=== PATIENT | male | born 1940 | race African-American/Black ===

== ENCOUNTER 2018-09-01 22:07 | Inpatient (IN) | payer OTHER ==
[~2018-09-01 22:07] MED LIST: ISOVUE-370 76%-LOCM 1 ML ONE
[2018-09-01] MEDS ORDERED: Acetaminophen 500 MG TAB ONE (23:43)
[2018-09-02] MEDS ORDERED: Ondansetron PF 4 MG/2 ML Vial IVP PRN ×2 (00:39→07:40)
[2018-09-02] MEDS ORDERED: Ondansetron ODT 4 MG TAB SL PRN (00:39)
[2018-09-02 00:51] VITALS: BMI 38.7
[2018-09-02] MEDS ORDERED: hydrALAZINE 20 MG/ML VIAL SLOW IVP PRN ×3 (01:06→07:48)
[2018-09-02] MEDS ORDERED: Labetalol HCl 100 MG/20 ML VIAL SLOW IVP PRN ×2 (01:06→07:40)
[2018-09-02] MEDS ORDERED: Bisacodyl 10 MG SUPP PR PRN (01:12)
[2018-09-02] MEDS ORDERED: Ketorolac Tromethamine 30 MG/ML VIAL IVP PRN (03:53)
[2018-09-02] MEDS: Acetaminophen 325 MG TAB PO PRN (05:52)
--- NOTE | 2018-09-02 07:26 | CT ---
CT ARTERIOGRAM NECK WITH IV CONTRAST AND 3D MIP IMAGING CT ARTERIOGRAM HEAD WITH IV CONTRAST AND 3D MIP IMAGING CT PERFUSION BRAIN CT BRAIN WITH AND WITHOUT IV CONTRAST: Date: 09/01/18 HISTORY: CVA. Vascular disease. FINDINGS: There is no evidence of acute intracranial hemorrhage or infarct. Mild chronic ischemic small vessel disease. The sella is expanded by a lobular low density lesion without significant enhancement. It me asures up to 1.5 cm and displaces the adjacent vessels. Normal branching of the great vessels at the aortic arch with very tortuous great vessels. Good flow into each internal carotid and vertebral system. On the right, there is a large amount of calcification and plaque in the proximal internal carotid ar teries resulting in a string of contrast along the length of the proximal to mid ICA. Stenosis is gre ater than 90%. The left internal carotid artery is patent with a small amount of plaque. Intracranial ly, the andreafski of [place] is intact. Good flow into each cerebral arterial system. The right suprasell ar internal carotid artery is slightly effaced by the sellar mass. Perfusion images show no focal perfusion defect. The mean transit images show slight delay in uptake in the distribution of the right middle cerebral artery. IMPRESSION: 1. Severe stenosis of the right internal carotid artery within the neck. This likely accounts for th e delay in blood flow to the right middle cerebral artery distribution. No evidence of infarct. 2. Sellar and suprasellar mass, at least 1.5 cm greatest diameter. Please consider dedicated MRI of pituitary gland for better evaluation. All findings discussed with Dr. Rao at 2356 hours. CODE CR. POS: [facility]
[2018-09-02] MEDS ORDERED: Sodium Chloride 0.65% Nasal 44 ML BOT EA NARE PRN (07:40)
[2018-09-02] MEDS ORDERED: Loperamide HCl 2 MG CAP PO PRN (07:40)
[2018-09-02] MEDS ORDERED: Diabetic Tussin 200 MG/10 ML UDCUP PO PRN (07:40)
[2018-09-02] MEDS ORDERED: Cepastat Lozenges 1 LOZ PO PRN (07:40)
[2018-09-02] MEDS ORDERED: Eucerin (Mineral Oil/Petrolatum,White) 30 gm Jar TOP PRN (07:40)
[2018-09-02] MEDS ORDERED: Senokot S 8.6-50 MG TAB PO PRN (07:40)
[2018-09-02] MEDS ORDERED: Artificial Tears 18 DROP/0.9 ML EA EYE PRN (07:40)
[2018-09-02] MEDS ORDERED: Ondansetron ODT 4 MG TAB PO PRN (07:40)
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
[2018-09-02] MEDS: Clopidogrel Bisulfate 75 MG TAB PO SCH (08:24)
[2018-09-02] MEDS: Enoxaparin Sodium 40 MG/0.4 ML SYRINGE SC SCH (08:25)
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
[2018-09-02 10:36] LABS: Free T4 (Free Thyroxine) 0.87 ng/dL (0.70-1.48); Thyroid Stimulating Hormone 0.911 uIU/mL (0.35-4.94)
[2018-09-02 10:37] LABS: Follicle Stimulating Hormone 6.45 mIU/mL (See Ranges); Luteinizing Hormone 8.97 mIU/mL (See Ranges)
--- NOTE | 2018-09-02 10:37 | PDOC.PN ---
- Subjective Encounter Start Date: 09/02/18 Encounter Start Time: 07:15 -: old records requested/rev pt has left side weakness, speech is OK, has headache, denies diplopia Patient seen and examined. No overnight events - Objective Resuscitation Status: Resuscitation Status FULL:Full Resuscitation MAR Reviewed: Yes Vital Signs & Weight: Vital Signs (12 hours) Temp Pulse Resp BP Pulse Ox 09/02/18 08:10 98 09/02/18 08:06 99 F 78 16 161/78 H 96 09/02/18 08:00 99.0 F 68 16 121/56 L 98 09/02/18 04:00 98.3 F 09/02/18 01:00 98.1 F 09/02/18 00:30 95 Weight Weight 255 lb 1.197 oz Most Recent Monitor Data Heart Rate from ECG 93 NIBP 163/133 NIBP BP-Mean 143 Respiration from ECG 25 SpO2 93 I&O: 09/01/18 09/02/18 09/03/18 06:59 06:59 06:59 Output Total 375 Balance -375 Additional Labs: Accuchecks 09/02/18 06:05 POC Glucose 114 H Radiology Reviewed by me: Yes (CT angio reviewed) EKG Reviewed by me: Yes (nsr) Phys Exam - Physical Examination Constitutional: NAD HEENT: PERRLA, moist MMs, sclera anicteric Neck: no JVD, supple short neck+ Respiratory: no wheezing, no rales, no rhonchi Cardiovascular: RRR, no significant murmur, no rub Gastrointestinal: soft, non-tender, no distention, positive bowel sounds obesity+ Musculoskeletal: no edema, pulses present left side weakness Lymphatic: no nodes Psychiatric: normal affect, A&O x 3 Skin: no rash, normal turgor Dx/Plan (1) Acute right MCA stroke Code(s): I63.511 - CEREB INFRC D/T UNSP OCCLS OR STENOS OF RIGHT MID CEREB ART Status: Acute Comment: with left side weakness, continue plavix, lipitor, amlodipine, continue stroke team evaluation (2) Carotid stenosis, right Code(s): I65.21 - OCCLUSION AND STENOSIS OF RIGHT CAROTID ARTERY Status: Acute Comment: severe stenosis, he will need possible intervention if possible after recovery from stroke (3) 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 (4) Obesity (BMI 30-39.9) Code(s): E66.9 - OBESITY, UNSPECIFIED Status: Chronic (5) Osteoarthritis Code(s): M19.90 - UNSPECIFIED OSTEOARTHRITIS, UNSPECIFIED SITE Status: Acute (6) GERD (gastroesophageal reflux disease) Code(s): K21.9 - GASTRO-ESOPHAGEAL REFLUX DISEASE WITHOUT ESOPHAGITIS Status: Chronic (7) Hypertension Code(s): I10 - ESSENTIAL (PRIMARY) HYPERTENSION Status: Chronic (8) Chronic low back pain Code(s): M54.5 - LOW BACK PAIN; G89.29 - OTHER CHRONIC PAIN Status: Chronic - Plan cont current plan of care, PT/OT, clinical social work therapist, speech therapy, DVT proph w/ lovenox * CT surgeon consulted and discussed * Neurosurgeon consulted for pitutary mass, hormonal work up sent * stroke team consulted * start amlodipine 10 mg po daily * medication reviewed as below * symptomatic treatment * will monitor * may need rehab at [facility] on discharge. * MRI brain and echo today Review of Systems - Review of Systems Constitutional: negative: fever, chills, sweats, weakness, malaise, other ENT: negative: Ear Pain, Ear Discharge, Nose Pain, Nose Discharge, Nose Congestion, Mouth Pain, Mouth Swelling, Throat Pain, Throat Swelling, Other Respiratory: negative: Cough, Dry, Shortness of Breath, Hemoptysis, SOB with Excertion, Pleuritic Pain, Sputum, Wheezing Cardiovascular: negative: chest pain, palpitations, orthopnea, paroxysmal nocturnal dyspnea, edema, light headedness, other Gastrointestinal: negative: Nausea, Vomiting, Abdominal Pain, Diarrhea, Constipation, Melena, Hematochezia, Other Genitourinary: negative: Dysuria, Frequency, Incontinence, Hematuria, Retention , Other Musculoskeletal: Back Pain. negative: Neck Pain, Shoulder Pain, Arm Pain, Hand Pain, Leg Pain, Foot Pain, Other Skin: negative: Rash, Lesions, Jeffy, Bruising, Other Neurological: Weakness, Other (headache). negative: Numbness, Incoordination, Change in Speech, Confusion, Seizures - Medications/Allergies Allergies/Adverse Reactions: Allergies Allergy/AdvReac Type Severity Reaction Status Date / Time aspirin Allergy Verified 09/02/18 00:38 Medications: Current Medications Acetaminophen (Tylenol) 650 mg PO Q6H PRN PRN Reason: Headache/MILD PAIN 1-3 Last Admin: 10/18/18 05:52 Dose: 650 mg Hydrocodone Bitart/Acetaminophen ([place] 5/325) 1 tab PO Q4H PRN PRN Reason: Moderate Pain (4-6) Artificial Tears (Tears Naturale) 2 drop EA EYE PRN PRN PRN Reason: Dry Eyes Atorvastatin Calcium (Lipitor) 80 mg PO HS [facility] Bisacodyl (Dulcolax) [address] DAILYPRN PRN PRN Reason: Constipation Clopidogrel Bisulfate (Plavix) 75 mg PO DAILY [facility] Last Admin: 09/02/18 08:24 Dose: 75 mg Enoxaparin Sodium (Lovenox) 40 mg SC 0900 [facility] Last Admin: 09/02/18 08:25 Dose: 40 mg Guaifenesin (Robitussin Sf) 200 mg PO Q4H PRN PRN Reason: Cough Hydralazine HCl (Apresoline) 10 mg SLOW IVP Q4H PRN PRN Reason: SBP Greater Than 180 Labetalol HCl (Normodyne) 20 mg SLOW IVP Q1H PRN PRN Reason: BP > 220/110 Labetalol HCl (Normodyne) 20 mg SLOW IVP Q4H PRN PRN Reason: SBP Greater Than 180 Loperamide HCl (Imodium) 2 mg PO PRN PRN PRN Reason: Diarrhea/Loose Stools Mineral Oil/White Petrolatum (Eucerin Cream) 0 gm TOP BIDPRN PRN PRN Reason: Dry Skin Ondansetron HCl (Zofran Odt) 4 mg PO Q6H PRN PRN Reason: Nausea/Vomiting Ondansetron HCl (Zofran) 4 mg IVP Q6H PRN PRN Reason: Nausea/Vomiting Senna/Docusate Sodium (Senokot S) 2 tab PO BID PRN PRN Reason: Constipation Sodium Chloride (Flush - Normal Saline) 10 ml IVF Q12HR [facility] Last Admin: 09/02/18 08:25 Dose: 10 ml Sodium Chloride (Flush - Normal Saline) 10 ml IVF PRN PRN PRN Reason: Saline Flush Sodium Chloride (Davis Nasal [place] 0.65%) 0 ml EA NARE QIDPRN PRN PRN Reason: Nasal Congestion Throat Lozenges (Cepastat Lozenges) 1 keon PO Q2H PRN PRN Reason: Sore Throat Zolpidem Tartrate (Ambien) 5 mg PO HSPRN PRN PRN Reason: Insomnia
[2018-09-02 13:54] LABS: ALT (SGPT) 14 U/L (8-55); AST (SGOT) 29 U/L (5-34); Albumin 4.3 g/dL (3.4-4.8); Alkaline Phosphatase 108 U/L (40-150); Anion Gap 15 mmol/L (10-20); BUN (Urea Nitrogen) 16 mg/dL (8.4-25.7); Calc. Creatinine Clearance 88 mL/min (70-130); Calcium 9.7 mg/dL (7.8-10.44); Carbon Dioxide 20 mmol/L (23-31); Chloride 101 mmol/L (98-107); Estimated GFR-MDRD 73; Globulin 3.6 g/dL (2.4-3.5); Glucose 114 mg/dL (83-110); Potassium 3.8 mmol/L (3.5-5.1); Protein, Total 7.9 g/dL (5.8-8.1); Sodium 132 mmol/L (136-145)
[2018-09-02] MEDS: HYDROcodone/Acetaminophen 5/325 mg Tablet PO PRN ×2 (17:15→22:53)
[2018-09-02] MEDS: Atorvastatin Calcium 40 MG TAB PO SCH (22:29)
--- NOTE | 2018-09-02 22:34 | CON ---
DATE OF CONSULTATION: 09/02/2018 NEUROLOGY CONSULTATION CONSULTING PHYSICIAN: Hospitalist service. IMPRESSION: Minor stroke with high grade right internal carotid stenosis. Vascular surgery does not feel it is amenable to surgical intervention. PLAN: 1. I would check with Dr. Cano to see if he could potentially stent the area. Otherwise, he had to be referred out to a different facility for treatment. 2. Continue aspirin and Plavix. Mr. Brito is a 78-year-old inmate, came in with acute left-sided weakness. His workup has include d a CTA, which showed high grade stenosis in the right internal carotid artery below the skull base. His lipid panel showed a ratio of 4.0. CT did not reveal any evidence of ischemia. His left-sided weakness has improved since admission. He has not noted any difficulty with speech or swallowing. H e does not report any weakness in the leg. He has not had any symptoms like this in the past. PAST MEDICAL HISTORY: As per chart. SOCIAL HISTORY: He is an inmate. ALLERGIES: ASPIRINS. FAMILY HISTORY: Noncontributory. REVIEW OF SYSTEMS: Positive for right-sided headache. No chest pain or shortness of breath. PHYSICAL EXAMINATION: GENERAL: Somewhat overweight elderly man, in no acute distress. HEENT: Pupils equal and reactive. Conjunctivae clear. Oropharynx clear. NECK: Supple. EXTREMITIES: No cyanosis. NEUROLOGIC: He is alert and cooperative. His speech is fluent and clear. Cranial nerve exam showed some questionable left facial flattening, but it was quite subtle. Motor exam showed only partial a ntigravity strength in the left arm with a mildly diminished hand neckties painter. Sensation was subjectively e qual. His leg strength seemed to be fairly symmetric. Plantar response was downgoing on the right a nd upgoing on the left. Imaging was reviewed. SUMMARY: This is a 78-year-old gentleman who presents with left-sided weakness and high grade stenos is on the right. Dr. Cano suggests medical therapy before considering stenting. If he is truly all ergic to aspirin, I would discharge him on Plavix and a statin. He can have some outpatient rehabili tation.
[2018-09-03] MEDS: HYDROcodone/Acetaminophen 5/325 mg Tablet PO PRN ×5 (02:40→23:53)
[2018-09-03 07:23] LABS: #Basophils 0.1 thou/uL (0.0-0.2); #Eosinphils 0.1 thou/uL (0.0-0.7); #Lymphocytes 1.4 thou/uL (1.20-3.40); #Monocytes 1.6 thou/uL (0.11-0.59); #Neutrophils 9.3 thou/uL (1.40-6.50); %Basophils 0.4 % (0.0-1.0); %Eosinophils 0.5 % (0.0-10.0); %Lymphocytes 10.9 % (21.0-51.0); %Monocytes 12.9 % (0.0-10.0); %Neutrophils 75.2 % (42.0-75.0); Hemoglobin 15.5 g/dL (14.0-18.0); Mean Corpuscular HGB CONC 32.1 g/dL (32.0-36.0); Mean Corpuscular Hemoglobin 28.7 pg (27.0-31.0); Mean Corpuscular Volume 89.6 fL (78.0-98.0); Mean Platelet Volume 10.7 fL (7.4-10.4); Platelet Count 143 thou/uL (130-400); RBC Distribution Width 13.4 % (11.5-14.5); Red Blood Cell (RBC) Count 5.39 mill/uL (4.70-6.10); White Blood Cell (WBC) Count 12.3 thou/uL (4.8-10.8)
[2018-09-03 07:25] LABS: Anion Gap 11 mmol/L (10-20); BUN (Urea Nitrogen) 19 mg/dL (8.4-25.7); Calc. Creatinine Clearance 98 mL/min (70-130); Calcium 9.6 mg/dL (7.8-10.44); Carbon Dioxide 24 mmol/L (23-31); Chloride 101 mmol/L (98-107); Estimated GFR-MDRD 83; Glucose 101 mg/dL (83-110); Potassium 3.7 mmol/L (3.5-5.1); Sodium 132 mmol/L (136-145)
[2018-09-03 07:46] LABS: RBC Morphology Normal
--- NOTE | 2018-09-03 08:29 | PRG ---
DATE OF SERVICE: 09/03/2018 I personally interviewed and examined the patient and agree with documentation of Keya Sanchez PA-C dated 09/02/2018. Briefly, Giovanny Brito is a 78-year-old [facility]al of the [facility] who [facility] with new-onset left-sided weakness from stroke. A h igh grade right carotid stenosis was diagnosed with stenosis reached too high in the cervical carotid to be surgically accessible. We recommended that he be treated with antiplatelet agents. During hi s evaluation for stroke imaging revealed increase in size of the pituitary gland measuring about 1.5 cm and Neurosurgery was consulted. Mr. Brito has not had hot and cold intolerance, he has no subjective change in his vision. He has not had any change in his hand or foot size. He has no new onset diabetes or hypertension that is u nexplained, does not have wound healing issues that he knows of. I saw Mr. Brito in his hospital room this morning. On neurological examination, he may have a left upper quadrantanopsia. Otherwise, his visual mederos are full to bedside confrontational examination. His extraocular muscles are moving his eyes in all directions of primary gaze without nystagmus. His face is sensate and symmetric. There is some mild lower face weakness on the left. His hearing is normal for age. His lower cranial nerves are intac t. The tongue protrudes in the midline. Shoulder shrug is strong. There is mild upper motor neuron weakness in the left arm greater than right. There is relatively good preservation of sensation. Imaging findings suggest increase in size of the sella contents. 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 Serological examinations have been done. Prolactin is normal, FSH and LH are normal. The free T4 an d TSH are normal, IgF 1 is pending. MR imaging of the pituitary is pending. Ms. 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 This could be affecting his vision. A formal ophthalmological examination is recommended as well as an MRI scan u [facility] pituitary protocol. Mr. Brito is anxious about getting into the MR scanner. Sedation or ane sthesia could be arranged for the MRI scan. The pituitary adenomas incidental to the stroke and I think it is unrelated. It be worked up as an o utpatient or while he is here. Mr. Brito was ambivalent about getting treatment for this until it mention that it could affect his vision and he could have a slow and progressive blindness as a resu lt. He seemed more interested in workup because of that. I will be happy to see him in the office t o follow up on his imaging studies or, if they are done while in the hospital we can make arrangement s for tumor treatment before discharge. I will look for the MRI scan results over the weekend, as I am tree surgeon helper.
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
[2018-09-03] MEDS: Clopidogrel Bisulfate 75 MG TAB PO SCH (08:58)
[2018-09-03] MEDS: Enoxaparin Sodium 40 MG/0.4 ML SYRINGE SC SCH (08:59)
--- NOTE | 2018-09-03 09:49 | PDOC.PN ---
- Subjective Encounter Start Date: 09/03/18 Encounter Start Time: 07:10 yesterday mri was not possible, today he has no new problems - Objective Resuscitation Status: Resuscitation Status FULL:Full Resuscitation MAR Reviewed: Yes Vital Signs & Weight: Vital Signs (12 hours) Temp Pulse Resp BP Pulse Ox 09/03/18 07:51 99.2 F 70 16 157/58 H 97 09/03/18 04:00 98.6 F 75 28 H 137/74 97 09/03/18 00:00 98.4 F 70 20 153/79 H 96 Weight Weight 255 lb 1.197 oz Most Recent Monitor Data Heart Rate from ECG 93 NIBP 163/133 NIBP BP-Mean 143 Respiration from ECG 25 SpO2 93 I&O: 09/02/18 09/03/18 09/04/18 06:59 06:59 06:59 Intake Total 350 Output Total 375 475 Balance -375 -125 Result Diagrams: 09/03/18 05:08 09/03/18 05:08 Additional Labs: Accuchecks 09/03/18 09/02/18 09/02/18 06:37 20:53 16:42 POC Glucose 98 89 95 09/02/18 10:50 POC Glucose 108 Radiology Reviewed by me: Yes (echo reviewed) EKG Reviewed by me: Yes (nsr) Phys Exam - Physical Examination Constitutional: NAD HEENT: PERRLA, moist MMs, sclera anicteric Neck: no JVD, supple Respiratory: no wheezing, no rales, no rhonchi Cardiovascular: RRR, no significant murmur, no rub Gastrointestinal: soft, non-tender, no distention, positive bowel sounds Musculoskeletal: no edema, pulses present left side weakness noted Psychiatric: normal affect, A&O x 3 Skin: no rash, normal turgor Dx/Plan (1) Acute right MCA stroke Code(s): I63.511 - CEREB INFRC D/T UNSP OCCLS OR STENOS OF RIGHT MID CEREB ART Status: Acute Comment: with left side weakness, continue plavix, lipitor, amlodipine, continue stroke team evaluation (2) Carotid stenosis, right Code(s): I65.21 - OCCLUSION AND STENOSIS OF RIGHT CAROTID ARTERY Status: Acute Comment: severe stenosis, he will need possible intervention if possible after recovery from stroke (3) 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 (4) Obesity (BMI 30-39.9) Code(s): E66.9 - OBESITY, UNSPECIFIED Status: Chronic (5) Osteoarthritis Code(s): M19.90 - UNSPECIFIED OSTEOARTHRITIS, UNSPECIFIED SITE Status: Acute (6) GERD (gastroesophageal reflux disease) Code(s): K21.9 - GASTRO-ESOPHAGEAL REFLUX DISEASE WITHOUT ESOPHAGITIS Status: Chronic (7) Hypertension Code(s): I10 - ESSENTIAL (PRIMARY) HYPERTENSION Status: Chronic (8) Chronic low back pain Code(s): M54.5 - LOW BACK PAIN; G89.29 - OTHER CHRONIC PAIN Status: Chronic - Plan cont current plan of care, PT/OT, dialysis social worker * continue stroke team evaluation * he needs to be treated with medicine * no intervention possible at this time as per CT surgeon and neurosurgery * medication reviewed as below * symptomatic treatment * he will need infirmary on discharge. Review of Systems - Review of Systems Eyes: negative: Pain, Vision Change, Conjunctivae Inflammation, Eyelid Inflammation, Redness, Other ENT: negative: Ear Pain, Ear Discharge, Nose Pain, Nose Discharge, Nose Congestion, Mouth Pain, Mouth Swelling, Throat Pain, Throat Swelling, Other Respiratory: negative: Cough, Dry, Shortness of Breath, Hemoptysis, SOB with Excertion, Pleuritic Pain, Sputum, Wheezing Cardiovascular: negative: chest pain, palpitations, orthopnea, paroxysmal nocturnal dyspnea, edema, light headedness, other Gastrointestinal: negative: Nausea, Vomiting, Abdominal Pain, Diarrhea, Constipation, Melena, Hematochezia, Other Genitourinary: negative: Dysuria, Frequency, Incontinence, Hematuria, Retention , Other Musculoskeletal: negative: Neck Pain, Shoulder Pain, Arm Pain, Back Pain, Hand Pain, Leg Pain, Foot Pain, Other Skin: negative: Rash, Lesions, Jeffy, Bruising, Other Neurological: Weakness. negative: Numbness, Incoordination, Change in Speech, Confusion, Seizures, Other - Medications/Allergies Allergies/Adverse Reactions: Allergies Allergy/AdvReac Type Severity Reaction Status Date / Time aspirin Allergy Verified 09/02/18 00:38 Medications: Current Medications Acetaminophen (Tylenol) 650 mg PO Q6H PRN PRN Reason: Headache/MILD PAIN 1-3 Last Admin: 09/02/18 05:52 Dose: 650 mg Hydrocodone Bitart/Acetaminophen ([place] 5/325) 1 tab PO Q4H PRN PRN Reason: Moderate Pain (4-6) Last Admin: 09/03/18 08:58 Dose: 1 tab Artificial Tears (Tears Naturale) 2 drop EA EYE PRN PRN PRN Reason: Dry Eyes Atorvastatin Calcium (Lipitor) 80 mg PO HS COUNTS [facility]CLUDE 234 BEDS AT THE [facility] Last Admin: 09/02/18 22:29 Dose: 80 mg Bisacodyl (Dulcolax) 10 mg [place] DAILYPRN PRN PRN Reason: Constipation Clopidogrel Bisulfate (Plavix) 75 mg PO DAILY COUNTS INCLUDE 234 BEDS AT THE [facility] Last Admin: 09/03/18 08:58 Dose: 75 mg Enoxaparin Sodium (Lovenox) 40 mg SC 0900 COUNTS INCLUDE 234 BEDS AT THE [facility] Last Admin: 09/03/18 08:59 Dose: 40 mg Guaifenesin (Robitussin Sf) 200 mg PO Q4H PRN PRN Reason: Cough Hydralazine HCl (Apresoline) 10 mg SLOW IVP Q4H PRN PRN Reason: SBP Greater Than 180 Labetalol HCl (Normodyne) 20 mg SLOW IVP Q1H PRN PRN Reason: BP > 220/110 Labetalol HCl (Normodyne) 20 mg SLOW IVP Q4H PRN PRN Reason: SBP Greater Than 180 Loperamide HCl (Imodium) 2 mg PO PRN PRN PRN Reason: Diarrhea/Loose Stools Mineral Oil/White Petrolatum (Eucerin Cream) 0 gm TOP BIDPRN PRN PRN Reason: Dry Skin Ondansetron HCl (Zofran Odt) 4 mg PO Q6H PRN PRN Reason: Nausea/Vomiting Ondansetron HCl (Zofran) 4 mg IVP Q6H PRN PRN Reason: Nausea/Vomiting Senna/Docusate Sodium (Senokot S) 2 tab PO BID PRN PRN Reason: Constipation Sodium Chloride (Flush - Normal Saline) 10 ml IVF Q12HR COUNTS INCLUDE 234 BEDS AT THE [facility] Last Admin: 09/03/18 08:59 Dose: 10 ml Sodium Chloride (Flush - Normal Saline) 10 ml IVF PRN PRN PRN Reason: Saline Flush Sodium Chloride ([place] Nasal [place] 0.65%) 0 ml EA NARE QIDPRN PRN PRN Reason: Nasal Congestion Throat Lozenges (Cepastat Lozenges) 1 keon PO Q2H PRN PRN Reason: Sore Throat Zolpidem Tartrate (Ambien) 5 mg PO HSPRN PRN PRN Reason: Insomnia
[2018-09-03] MEDS: Famotidine 20 MG TAB PO SCH (19:56)
[2018-09-03] MEDS: Atorvastatin Calcium 40 MG TAB PO SCH (19:56)
[2018-09-04] MEDS: HYDROcodone/Acetaminophen 5/325 mg Tablet PO PRN ×4 (04:17→21:06)
--- NOTE | 2018-09-04 07:51 | PRG ---
DATE OF SERVICE: 09/04/2018 Reviewed results from yesterday on Giovanny Brito. I do not see a new MRI scan. I am happy to see him here in the hospital or in clinic once a pituitary protocol MRI scan can be obtained. He is kosta g to need anesthesia assistance to tolerate being in the MR scanner. We will follow up when that is done.
[2018-09-04] MEDS: Enoxaparin Sodium 40 MG/0.4 ML SYRINGE SC SCH (08:32)
[2018-09-04 08:34] LABS: #Lymphocytes 1.5 thou/uL (1.20-3.40); #Monocytes 1.9 thou/uL (0.11-0.59); #Neutrophils 12.2 thou/uL (1.40-6.50); %Basophils 0.3 % (0.0-1.0); %Eosinophils 0.3 % (0.0-10.0); %Lymphocytes 9.5 % (21.0-51.0); Hemoglobin 15.1 g/dL (14.0-18.0); Mean Corpuscular HGB CONC 31.6 g/dL (32.0-36.0); Mean Corpuscular Volume 88.7 fL (78.0-98.0); Mean Platelet Volume 10.8 fL (7.4-10.4); Platelet Count 141 thou/uL (130-400); Red Blood Cell (RBC) Count 5.39 mill/uL (4.70-6.10); White Blood Cell (WBC) Count 15.6 thou/uL (4.8-10.8)
[2018-09-04] MEDS: Famotidine 20 MG TAB PO SCH ×2 (08:34→21:06)
[2018-09-04] MEDS: Clopidogrel Bisulfate 75 MG TAB PO SCH (08:34)
[2018-09-04 09:00] LABS: Calcium 9.4 mg/dL (7.8-10.44); Chloride 98 mmol/L (98-107); Potassium 4.2 mmol/L (3.5-5.1); Sodium 130 mmol/L (136-145)
[2018-09-04 09:01] LABS: Glucose 115 mg/dL (83-110)
[2018-09-04 09:02] LABS: Anion Gap 11 mmol/L (10-20); Carbon Dioxide 25 mmol/L (23-31)
[2018-09-04 09:04] LABS: Calc. Creatinine Clearance 104 mL/min (70-130); Estimated GFR-MDRD 89
[2018-09-04 09:05] LABS: BUN (Urea Nitrogen) 18 mg/dL (8.4-25.7)
--- NOTE | 2018-09-04 09:58 | PDOC.PN ---
- Subjective Encounter Start Date: 09/04/18 Encounter Start Time: 07:10 he has low grade fever, he denies cough, no UTI symptoms, no new problems - Objective Resuscitation Status: Resuscitation Status FULL:Full Resuscitation MAR Reviewed: Yes Vital Signs & Weight: Vital Signs (12 hours) Temp Pulse Resp BP Pulse Ox 09/04/18 08:24 95 09/04/18 03:21 100.1 F H 70 20 169/81 H 96 Weight Weight 255 lb 1.197 oz Most Recent Monitor Data Heart Rate from ECG 93 NIBP 163/133 NIBP BP-Mean 143 Respiration from ECG 25 SpO2 93 I&O: 09/03/18 09/04/18 09/05/18 06:59 06:59 06:59 Intake Total 350 1220 Output Total 475 Balance -125 1220 Result Diagrams: 09/04/18 08:13 09/04/18 08:13 Additional Labs: Accuchecks 09/03/18 09/03/18 09/03/18 21:34 16:50 10:44 POC Glucose 140 H 106 123 H Radiology Reviewed by me: Yes (chest xray reviewed) EKG Reviewed by me: Yes (nsr) Phys Exam - Physical Examination Constitutional: NAD HEENT: PERRLA, moist MMs, sclera anicteric Neck: no JVD, supple Respiratory: no wheezing, no rales, no rhonchi Cardiovascular: RRR, no significant murmur, no rub Gastrointestinal: soft, non-tender, no distention, positive bowel sounds obesity+ Musculoskeletal: no edema, pulses present left side weakness noted Psychiatric: normal affect, A&O x 3 Skin: no rash, normal turgor Dx/Plan (1) Acute right MCA stroke Code(s): I63.511 - CEREB INFRC D/T UNSP OCCLS OR STENOS OF RIGHT MID CEREB ART Status: Acute Comment: with left side weakness, continue plavix, lipitor, amlodipine, continue stroke team evaluation (2) Carotid stenosis, right Code(s): I65.21 - OCCLUSION AND STENOSIS OF RIGHT CAROTID ARTERY Status: Acute Comment: severe stenosis, he will need possible intervention if possible after recovery from stroke (3) 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 (4) Obesity (BMI 30-39.9) Code(s): E66.9 - OBESITY, UNSPECIFIED Status: Chronic (5) Osteoarthritis Code(s): M19.90 - UNSPECIFIED OSTEOARTHRITIS, UNSPECIFIED SITE Status: Acute (6) GERD (gastroesophageal reflux disease) Code(s): K21.9 - GASTRO-ESOPHAGEAL REFLUX DISEASE WITHOUT ESOPHAGITIS Status: Chronic (7) Hypertension Code(s): I10 - ESSENTIAL (PRIMARY) HYPERTENSION Status: Chronic (8) Chronic low back pain Code(s): M54.5 - LOW BACK PAIN; G89.29 - OTHER CHRONIC PAIN Status: Chronic - Plan cont current plan of care, PT/OT * chest xray reviewed for fever * will send UA and urine culture * will monitor for fever today * he needs MRI but because of his size not possible in our hospital, that can be done electively as an outpt and then follow up with neurosurgery * medication reviewed as below * symptomatic treatment * [facility], then he would be ok to dc tomorrow if afebrile. Review of Systems - Review of Systems ENT: negative: Ear Pain, Ear Discharge, Nose Pain, Nose Discharge, Nose Congestion, Mouth Pain, Mouth Swelling, Throat Pain, Throat Swelling, Other Respiratory: negative: Cough, Dry, Shortness of Breath, Hemoptysis, SOB with Excertion, Pleuritic Pain, Sputum, Wheezing Cardiovascular: negative: chest pain, palpitations, orthopnea, paroxysmal nocturnal dyspnea, edema, light headedness, other Gastrointestinal: negative: Nausea, Vomiting, Abdominal Pain, Diarrhea, Constipation, Melena, Hematochezia, Other Genitourinary: negative: Dysuria, Frequency, Incontinence, Hematuria, Retention , Other Musculoskeletal: negative: Neck Pain, Shoulder Pain, Arm Pain, Back Pain, Hand Pain, Leg Pain, Foot Pain, Other Skin: negative: Rash, Lesions, Jeffy, Bruising, Other - Medications/Allergies Allergies/Adverse Reactions: Allergies Allergy/AdvReac Type Severity Reaction Status Date / Time aspirin Allergy Verified 09/02/18 00:38 Medications: Current Medications Acetaminophen (Tylenol) 650 mg PO Q6H PRN PRN Reason: Headache/MILD PAIN 1-3 Last Admin: 09/02/18 05:52 Dose: 650 mg Hydrocodone Bitart/Acetaminophen ([place] 5/325) 1 tab PO Q4H PRN PRN Reason: Moderate Pain (4-6) Last Admin: 09/04/18 08:34 Dose: 1 tab Artificial Tears (Tears Naturale) 2 drop EA EYE PRN PRN PRN Reason: Dry Eyes Atorvastatin Calcium (Lipitor) 80 mg PO HS [facility] Last Admin: 09/03/18 19:56 Dose: 80 mg Bisacodyl (Dulcolax) 10 mg [place] DAILYPRN PRN PRN Reason: Constipation Clopidogrel Bisulfate (Plavix) 75 mg PO DAILY [facility] Last Admin: 09/04/18 08:34 Dose: 75 mg Enoxaparin Sodium (Lovenox) 40 mg SC 0900 [facility] Last Admin: 09/04/18 08:32 Dose: 40 mg Famotidine (Pepcid) 20 mg PO BID [facility] Last Admin: 09/04/18 08:34 Dose: 20 mg Guaifenesin (Robitussin Sf) 200 mg PO Q4H PRN PRN Reason: Cough Hydralazine HCl (Apresoline) 10 mg SLOW IVP Q4H PRN PRN Reason: SBP Greater Than 180 Labetalol HCl (Normodyne) 20 mg SLOW IVP Q4H PRN PRN Reason: SBP Greater Than 180 Loperamide HCl (Imodium) 2 mg PO PRN PRN PRN Reason: Diarrhea/Loose Stools Mineral Oil/White Petrolatum (Eucerin Cream) 0 gm TOP BIDPRN PRN PRN Reason: Dry Skin Ondansetron HCl (Zofran Odt) 4 mg PO Q6H PRN PRN Reason: Nausea/Vomiting Ondansetron HCl (Zofran) 4 mg IVP Q6H PRN PRN Reason: Nausea/Vomiting Senna/Docusate Sodium (Senokot S) 2 tab PO BID PRN PRN Reason: Constipation Sodium Chloride (Flush - Normal Saline) 10 ml IVF Q12HR [facility] Last Admin: 09/04/18 08:35 Dose: 10 ml Sodium Chloride (Flush - Normal Saline) 10 ml IVF PRN PRN PRN Reason: Saline Flush Sodium Chloride ([place] Nasal [place] 0.65%) 0 ml EA NARE QIDPRN PRN PRN Reason: Nasal Congestion Throat Lozenges (Cepastat Lozenges) 1 keon PO Q2H PRN PRN Reason: Sore Throat Zolpidem Tartrate (Ambien) 5 mg PO HSPRN PRN PRN Reason: Insomnia
--- NOTE | 2018-09-04 11:03 | RAD ---
FRONTAL VIEW CHEST: COMPARISON: No prior comparison. INDICATION: Fever, stroke. FINDINGS: Cardiac silhouette is accentuated by portable technique. There is prominence of the central pulmonar y vasculature. No lobar consolidation or significant effusion. No discrete pneumothorax. There are numerous extrinsic artifacts limiting detail. IMPRESSION: 1. No focal consolidation. 2. Mild prominence of pulmonary vasculature which may be related to fluid overload. Correlate clini demetria. POS: ANDRZEJ
[2018-09-04 12:42] LABS: Bilirubin Negative (Negative); Blood, Urine Negative (Negative); Clarity CLEAR (Clear); Glucose, Urine (Dipstick) Negative (Negative); Leukocyte Negative (Negative); Nitrite Negative (Negative); Protein, Urine (Dipstick) Negative (Neg-Trace); Specific Gravity, Urine 1.001 (1.002-1.036); Urobilinogen 0.2 mg/dL (0.2-1.0); pH, Urine 7.5 (5.0-9.0)
[2018-09-04] MEDS: Atorvastatin Calcium 40 MG TAB PO SCH (21:06)
[2018-09-05] MEDS: HYDROcodone/Acetaminophen 5/325 mg Tablet PO PRN ×4 (05:09→21:21)
[2018-09-05 08:06] LABS: #Lymphocytes 1.7 thou/uL (1.20-3.40); #Monocytes 1.8 thou/uL (0.11-0.59); #Neutrophils 9.4 thou/uL (1.40-6.50); %Basophils 0.3 % (0.0-1.0); %Eosinophils 0.2 % (0.0-10.0); %Lymphocytes 12.7 % (21.0-51.0); %Monocytes 14.2 % (0.0-10.0); %Neutrophils 72.6 % (42.0-75.0); Hemoglobin 15.5 g/dL (14.0-18.0); Mean Corpuscular HGB CONC 32.4 g/dL (32.0-36.0); Mean Corpuscular Hemoglobin 28.7 pg (27.0-31.0); Mean Corpuscular Volume 88.8 fL (78.0-98.0); Mean Platelet Volume 10.3 fL (7.4-10.4); Platelet Count 125 thou/uL (130-400); RBC Distribution Width 12.9 % (11.5-14.5); Red Blood Cell (RBC) Count 5.38 mill/uL (4.70-6.10)
[2018-09-05 08:20] LABS: Anion Gap 11 mmol/L (10-20); BUN (Urea Nitrogen) 15 mg/dL (8.4-25.7); Calc. Creatinine Clearance 105 mL/min (70-130); Calcium 9.2 mg/dL (7.8-10.44); Carbon Dioxide 26 mmol/L (23-31); Chloride 98 mmol/L (98-107); Estimated GFR-MDRD 90; Glucose 114 mg/dL (83-110); Potassium 3.6 mmol/L (3.5-5.1); Sodium 131 mmol/L (136-145)
[2018-09-05] MEDS: Clopidogrel Bisulfate 75 MG TAB PO SCH (09:28)
[2018-09-05] MEDS: Famotidine 20 MG TAB PO SCH ×2 (09:30→21:21)
[2018-09-05] MEDS: Enoxaparin Sodium 40 MG/0.4 ML SYRINGE SC SCH (09:30)
--- NOTE | 2018-09-05 10:01 | PDOC.PN ---
- Subjective Encounter Start Date: 09/05/18 Encounter Start Time: 07:10 Patient seen and examined. No new complaints. No overnight events - Objective Resuscitation Status: Resuscitation Status FULL:Full Resuscitation MAR Reviewed: Yes Vital Signs & Weight: Vital Signs (12 hours) Temp Pulse Pulse Resp BP BP Pulse Ox 09/05/18 08:38 84 142/68 H 09/05/18 04:00 99.0 F 62 18 112/69 94 L Weight Weight 255 lb 1.197 oz Most Recent Monitor Data Heart Rate from ECG 93 NIBP 163/133 NIBP BP-Mean 143 Respiration from ECG 25 SpO2 93 I&O: 09/04/18 09/05/18 09/06/18 06:59 06:59 06:59 Intake Total 1220 1290 Balance 1220 1290 Result Diagrams: 09/05/18 07:52 09/05/18 07:52 Additional Labs: Accuchecks 09/05/18 09/04/18 09/04/18 05:34 21:33 17:05 POC Glucose 141 H 125 H 112 H 09/04/18 09/04/18 11:22 05:30 POC Glucose 117 H 112 H EKG Reviewed by me: Yes (nsr) Phys Exam - Physical Examination Constitutional: NAD HEENT: PERRLA, moist MMs, sclera anicteric Neck: no JVD, supple Respiratory: no wheezing, no rales, no rhonchi Cardiovascular: RRR, no significant murmur, no rub Gastrointestinal: soft, non-tender, no distention, positive bowel sounds Musculoskeletal: no edema, pulses present left side weakness Psychiatric: normal affect, A&O x 3 Skin: no rash, normal turgor Dx/Plan (1) Acute right MCA stroke Code(s): I63.511 - CEREB INFRC D/T UNSP OCCLS OR STENOS OF RIGHT MID CEREB ART Status: Acute Comment: with left side weakness, continue plavix, lipitor, amlodipine, continue stroke team evaluation (2) Carotid stenosis, right Code(s): I65.21 - OCCLUSION AND STENOSIS OF RIGHT CAROTID ARTERY Status: Acute Comment: severe stenosis, he will need possible intervention if possible after recovery from stroke (3) 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 (4) Obesity (BMI 30-39.9) Code(s): E66.9 - OBESITY, UNSPECIFIED Status: Chronic (5) Osteoarthritis Code(s): M19.90 - UNSPECIFIED OSTEOARTHRITIS, UNSPECIFIED SITE Status: Acute (6) GERD (gastroesophageal reflux disease) Code(s): K21.9 - GASTRO-ESOPHAGEAL REFLUX DISEASE WITHOUT ESOPHAGITIS Status: Chronic (7) Hypertension Code(s): I10 - ESSENTIAL (PRIMARY) HYPERTENSION Status: Chronic (8) Chronic low back pain Code(s): M54.5 - LOW BACK PAIN; G89.29 - OTHER CHRONIC PAIN Status: Chronic - Plan cont current plan of care, PT/OT * medication reviewed as below * symptomatic treatment * will need [facility] * overall stable and improving * discharge possible tomorrow. Review of Systems - Review of Systems ENT: negative: Ear Pain, Ear Discharge, Nose Pain, Nose Discharge, Nose Congestion, Mouth Pain, Mouth Swelling, Throat Pain, Throat Swelling, Other Respiratory: negative: Cough, Dry, Shortness of Breath, Hemoptysis, SOB with Excertion, Pleuritic Pain, Sputum, Wheezing Cardiovascular: negative: chest pain, palpitations, orthopnea, paroxysmal nocturnal dyspnea, edema, light headedness, other Gastrointestinal: negative: Nausea, Vomiting, Abdominal Pain, Diarrhea, Constipation, Melena, Hematochezia, Other Genitourinary: negative: Dysuria, Frequency, Incontinence, Hematuria, Retention , Other Musculoskeletal: Back Pain. negative: Neck Pain, Shoulder Pain, Arm Pain, Hand Pain, Leg Pain, Foot Pain, Other Skin: negative: Rash, Lesions, Jeffy, Bruising, Other - Medications/Allergies Allergies/Adverse Reactions: Allergies Allergy/AdvReac Type Severity Reaction Status Date / Time aspirin Allergy Verified 09/02/18 00:38 Medications: Current Medications Acetaminophen (Tylenol) 650 mg PO Q6H PRN PRN Reason: Headache/MILD PAIN 1-3 Last Admin: 09/02/18 05:52 Dose: 650 mg Hydrocodone Bitart/Acetaminophen ([place] 5/325) 1 tab PO Q4H PRN PRN Reason: Moderate Pain (4-6) Last Admin: 09/05/18 09:29 Dose: 1 tab Artificial Tears (Tears Naturale) 2 drop EA EYE PRN PRN PRN Reason: Dry Eyes Atorvastatin Calcium (Lipitor) 80 mg PO HS [facility] Last Admin: 09/04/18 21:06 Dose: 80 mg Bisacodyl (Dulcolax) 10 mg [place] DAILYPRN PRN PRN Reason: Constipation Clopidogrel Bisulfate (Plavix) 75 mg PO DAILY [facility] Last Admin: 09/05/18 09:28 Dose: 75 mg Enoxaparin Sodium (Lovenox) 40 mg SC 0900 [facility] Last Admin: 09/05/18 09:30 Dose: 40 mg Famotidine (Pepcid) 20 mg PO BID [facility] Last Admin: 09/05/18 09:30 Dose: 20 mg Guaifenesin (Robitussin Sf) 200 mg PO Q4H PRN PRN Reason: Cough Hydralazine HCl (Apresoline) 10 mg SLOW IVP Q4H PRN PRN Reason: SBP Greater Than 180 Labetalol HCl (Normodyne) 20 mg SLOW IVP Q4H PRN PRN Reason: SBP Greater Than 180 Loperamide HCl (Imodium) 2 mg PO PRN PRN PRN Reason: Diarrhea/Loose Stools Mineral Oil/White Petrolatum (Eucerin Cream) 0 gm TOP BIDPRN PRN PRN Reason: Dry Skin Ondansetron HCl (Zofran Odt) 4 mg PO Q6H PRN PRN Reason: Nausea/Vomiting Ondansetron HCl (Zofran) 4 mg IVP Q6H PRN PRN Reason: Nausea/Vomiting Senna/Docusate Sodium (Senokot S) 2 tab PO BID PRN PRN Reason: Constipation Sodium Chloride (Flush - Normal Saline) 10 ml IVF Q12HR [facility] Last Admin: 09/05/18 09:30 Dose: 10 ml Sodium Chloride (Flush - Normal Saline) 10 ml IVF PRN PRN PRN Reason: Saline Flush Sodium Chloride ([place] Nasal [place] 0.65%) 0 ml EA NARE QIDPRN PRN PRN Reason: Nasal Congestion Throat Lozenges (Cepastat Lozenges) 1 keon PO Q2H PRN PRN Reason: Sore Throat Zolpidem Tartrate (Ambien) 5 mg PO HSPRN PRN PRN Reason: Insomnia
[2018-09-05] MEDS: Atorvastatin Calcium 40 MG TAB PO SCH (21:21)
[2018-09-05] MEDS: Zolpidem Tartrate 5 MG TAB PO PRN (21:23)
[2018-09-06] MEDS: HYDROcodone/Acetaminophen 5/325 mg Tablet PO PRN ×2 (06:21→16:29)
--- NOTE | 2018-09-06 08:38 | PDOC.PN ---
- Subjective Encounter Start Date: 09/06/18 Encounter Start Time: 07:10 pt has fever, has back pain which is chronic Patient seen and examined. No overnight events - Objective Resuscitation Status: Resuscitation Status FULL:Full Resuscitation MAR Reviewed: Yes Vital Signs & Weight: Vital Signs (12 hours) Temp Pulse Resp BP BP Pulse Ox 09/06/18 04:00 99.1 F 63 20 165/73 H 97 09/06/18 00:00 100 F H 61 18 112/54 L 95 09/05/18 20:40 95 Weight Weight 255 lb 1.197 oz Most Recent Monitor Data Heart Rate from ECG 93 NIBP 163/133 NIBP BP-Mean 143 Respiration from ECG 25 SpO2 93 I&O: 09/05/18 09/06/18 09/07/18 06:59 06:59 06:59 Intake Total 1290 480 Output Total 480 Balance 1290 0 Result Diagrams: 09/05/18 07:52 09/05/18 07:52 Additional Labs: Accuchecks 09/06/18 09/05/18 09/05/18 06:13 20:52 16:43 POC Glucose 115 H 121 H 126 H 09/05/18 10:52 POC Glucose 113 H EKG Reviewed by me: Yes Phys Exam - Physical Examination Constitutional: NAD HEENT: PERRLA, moist MMs, sclera anicteric Neck: no JVD, supple Respiratory: no wheezing, no rales, no rhonchi Cardiovascular: RRR, no significant murmur, no rub Gastrointestinal: soft, non-tender, no distention, positive bowel sounds Musculoskeletal: no edema, pulses present left side weakness noted Psychiatric: normal affect, A&O x 3 Skin: no rash, normal turgor Dx/Plan (1) Acute right MCA stroke Code(s): I63.511 - CEREB INFRC D/T UNSP OCCLS OR STENOS OF RIGHT MID CEREB ART Status: Acute Comment: with left side weakness, continue plavix, lipitor, amlodipine, continue stroke team evaluation (2) Carotid stenosis, right Code(s): I65.21 - OCCLUSION AND STENOSIS OF RIGHT CAROTID ARTERY Status: Acute Comment: severe stenosis, he will need possible intervention if possible after recovery from stroke (3) 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 (4) Obesity (BMI 30-39.9) Code(s): E66.9 - OBESITY, UNSPECIFIED Status: Chronic (5) Osteoarthritis Code(s): M19.90 - UNSPECIFIED OSTEOARTHRITIS, UNSPECIFIED SITE Status: Acute (6) GERD (gastroesophageal reflux disease) Code(s): K21.9 - GASTRO-ESOPHAGEAL REFLUX DISEASE WITHOUT ESOPHAGITIS Status: Chronic (7) Hypertension Code(s): I10 - ESSENTIAL (PRIMARY) HYPERTENSION Status: Chronic (8) Chronic low back pain Code(s): M54.5 - LOW BACK PAIN; G89.29 - OTHER CHRONIC PAIN Status: Chronic - Plan cont current plan of care, PT/OT, group social worker * start empiric levaquin for fever, etiology unclear * medication reviewed as below * symptomatic treatment * will consider discharge when infirmary arranged. Review of Systems - Review of Systems Constitutional: fever. negative: chills, sweats, weakness, malaise, other ENT: negative: Ear Pain, Ear Discharge, Nose Pain, Nose Discharge, Nose Congestion, Mouth Pain, Mouth Swelling, Throat Pain, Throat Swelling, Other Respiratory: negative: Cough, Dry, Shortness of Breath, Hemoptysis, SOB with Excertion, Pleuritic Pain, Sputum, Wheezing Cardiovascular: negative: chest pain, palpitations, orthopnea, paroxysmal nocturnal dyspnea, edema, light headedness, other Gastrointestinal: negative: Nausea, Vomiting, Abdominal Pain, Diarrhea, Constipation, Melena, Hematochezia, Other Genitourinary: negative: Dysuria, Frequency, Incontinence, Hematuria, Retention , Other Musculoskeletal: Back Pain. negative: Neck Pain, Shoulder Pain, Arm Pain, Hand Pain, Leg Pain, Foot Pain, Other - Medications/Allergies Allergies/Adverse Reactions: Allergies Allergy/AdvReac Type Severity Reaction Status Date / Time aspirin Allergy Verified 09/02/18 00:38 Medications: Current Medications Acetaminophen (Tylenol) 650 mg PO Q6H PRN PRN Reason: Headache/MILD PAIN 1-3 Last Admin: 09/02/18 05:52 Dose: 650 mg Hydrocodone Bitart/Acetaminophen ([place] 5/325) 1 tab PO Q4H PRN PRN Reason: Moderate Pain (4-6) Last Admin: 09/06/18 06:21 Dose: 1 tab Artificial Tears (Tears Naturale) 2 drop EA EYE PRN PRN PRN Reason: Dry Eyes Atorvastatin Calcium (Lipitor) 80 mg PO HS [facility] Last Admin: 09/05/18 21:21 Dose: 80 mg Bisacodyl (Dulcolax) 10 mg [place] DAILYPRN PRN PRN Reason: Constipation Clopidogrel Bisulfate (Plavix) 75 mg PO DAILY [facility] Last Admin: 09/05/18 09:28 Dose: 75 mg Enoxaparin Sodium (Lovenox) 40 mg SC 0900 [facility] Last Admin: 09/05/18 09:30 Dose: 40 mg Famotidine (Pepcid) 20 mg PO BID [facility] Last Admin: 09/05/18 21:21 Dose: 20 mg Guaifenesin (Robitussin Sf) 200 mg PO Q4H PRN PRN Reason: Cough Hydralazine HCl (Apresoline) 10 mg SLOW IVP Q4H PRN PRN Reason: SBP Greater Than 180 Labetalol HCl (Normodyne) 20 mg SLOW IVP Q4H PRN PRN Reason: SBP Greater Than 180 Loperamide HCl (Imodium) 2 mg PO PRN PRN PRN Reason: Diarrhea/Loose Stools Mineral Oil/White Petrolatum (Eucerin Cream) 0 gm TOP BIDPRN PRN PRN Reason: Dry Skin Ondansetron HCl (Zofran Odt) 4 mg PO Q6H PRN PRN Reason: Nausea/Vomiting Ondansetron HCl (Zofran) 4 mg IVP Q6H PRN PRN Reason: Nausea/Vomiting Senna/Docusate Sodium (Senokot S) 2 tab PO BID PRN PRN Reason: Constipation Sodium Chloride (Flush - Normal Saline) 10 ml IVF Q12HR [facility] Last Admin: 09/05/18 21:21 Dose: 10 ml Sodium Chloride (Flush - Normal Saline) 10 ml IVF PRN PRN PRN Reason: Saline Flush Sodium Chloride ([place] Nasal [place] 0.65%) 0 ml EA NARE QIDPRN PRN PRN Reason: Nasal Congestion Throat Lozenges (Cepastat Lozenges) 1 keon PO Q2H PRN PRN Reason: Sore Throat Zolpidem Tartrate (Ambien) 5 mg PO HSPRN PRN PRN Reason: Insomnia Last Admin: 09/05/18 21:23 Dose: 5 mg
[2018-09-06] MEDS: Enoxaparin Sodium 40 MG/0.4 ML SYRINGE SC SCH (09:26)
[2018-09-06] MEDS: Famotidine 20 MG TAB PO SCH ×2 (09:27→21:11)
[2018-09-06] MEDS: Clopidogrel Bisulfate 75 MG TAB PO SCH (09:27)
[2018-09-06] MEDS: Acetaminophen 325 MG TAB PO PRN (13:20)
[2018-09-06] MEDS: Atorvastatin Calcium 40 MG TAB PO SCH (21:11)
[2018-09-06] MEDS: Zolpidem Tartrate 5 MG TAB PO PRN (21:16)
[2018-09-07] MEDS: HYDROcodone/Acetaminophen 5/325 mg Tablet PO PRN ×2 (09:47→17:32)
[2018-09-07] MEDS: Clopidogrel Bisulfate 75 MG TAB PO SCH (09:49)
[2018-09-07] MEDS: Famotidine 20 MG TAB PO SCH ×2 (09:49→20:48)
[2018-09-07] MEDS: Enoxaparin Sodium 40 MG/0.4 ML SYRINGE SC SCH (09:51)
--- NOTE | 2018-09-07 12:11 | PRG ---
DATE OF SERVICE: 09/07/2018 SUBJECTIVE: The patient reports he has a little bit of phlegm and a minor cough which causes him sivan e soreness in the right posterior neck area. He also reports some diarrhea with multiple episodes th rough the night. Nurses report that he told them that he gets diarrhea when he eats peaches and he w as not going to eat the ones on his tray, but then they came back later and he said the guards told h im he had to eat his peaches so he ate them. The patient has been getting up and ambulating. Denies any abdominal pain. PHYSICAL EXAMINATION: VITAL SIGNS: Temperature max is 99.8, pulse 78, respirations 19, O2 sat 96% on room air, BP is 143/6 4. GENERAL: Age appropriate male, slightly obese, no distress. He is awake and alert. HEENT: Normal. HEART: Regular, without murmurs. LUNGS: Clear with the exception of very minimal coarse breath sounds at the right base. ABDOMEN: Soft, nontender, nondistended with positive bowel sounds. EXTREMITIES: Warm and dry without any cyanosis, clubbing, or edema. Blood sugar was 113. ASSESSMENT: 1. Cerebrovascular accident in the right middle cerebral artery distribution. The patient has minim al left-sided weakness residual. He is on Plavix. He is allergic to ASPIRIN. He remains on Lipitor . Continuing to work with therapies. 2. Carotid stenosis on the right. The patient has been seen by CV Surgery and do not believe it is something that they can intervene with. I will see if I can talk to Dr. Cano at some point today to see if there is possibility of a stent based on Dr. Burrows's recommendation. 3. 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 The patient will need outpatient workup as he is not amenable to an MRI right now. 4. Diarrhea. We will check difficile, although unlikely. He just started on antibiotics this sanjanani [place]. 5. Low grade temperature elevations, possibly qualifying as a fever. We will recheck his CBC as he did have a bit of a leukocytosis a couple of days ago. We will also repeat a chest x-ray. 6. Hypertension, chronic, stable. 7. History of reflux. 8. History of osteoarthritis particularly affecting his ankles and somewhat limiting his ability to ambulate. 9. Obesity. DISPOSITION: If the patient has no significant findings related to his diarrhea or low grade tempera ture elevations, should be on course for discharge hoping to get him to the [facility].
[2018-09-07 12:21] LABS: #Basophils 0.2 thou/uL (0.0-0.2); #Eosinphils 0.1 thou/uL (0.0-0.7); #Lymphocytes 1.3 thou/uL (1.20-3.40); #Monocytes 1.5 thou/uL (0.11-0.59); #Neutrophils 9.5 thou/uL (1.40-6.50); %Basophils 1.3 % (0.0-1.0); %Eosinophils 0.4 % (0.0-10.0); %Lymphocytes 10.5 % (21.0-51.0); %Monocytes 12.1 % (0.0-10.0); %Neutrophils 75.7 % (42.0-75.0); Hemoglobin 15.3 g/dL (14.0-18.0); Mean Corpuscular HGB CONC 31.9 g/dL (32.0-36.0); Mean Platelet Volume 10.4 fL (7.4-10.4); Platelet Count 144 thou/uL (130-400); RBC Distribution Width 12.9 % (11.5-14.5); Red Blood Cell (RBC) Count 5.44 mill/uL (4.70-6.10); White Blood Cell (WBC) Count 12.5 thou/uL (4.8-10.8)
--- NOTE | 2018-09-07 14:54 | RAD ---
PA AND LATERAL CHEST: HISTORY: A 78-year-old male with a history of fever. COMPARISON: 09/04/2018 FINDINGS: Heart size is within normal limits. Monitor leads overly the chest. No confluent pneumonia, overt e elder, or pleural effusion. IMPRESSION: No acute intrathoracic disease. No evidence of pneumonia. No significant change from prior study. POS: FERNANDO
[2018-09-07] MEDS: Acetaminophen 325 MG TAB PO PRN (20:41)
[2018-09-07] MEDS: Zolpidem Tartrate 5 MG TAB PO PRN (20:48)
[2018-09-07] MEDS: Saccharomyces boulardii 250 MG CAP PO SCH (20:48)
[2018-09-07] MEDS: Atorvastatin Calcium 40 MG TAB PO SCH (20:48)
[2018-09-08] MEDS: HYDROcodone/Acetaminophen 5/325 mg Tablet PO PRN ×4 (03:10→23:52)
[2018-09-08] MEDS: Acetaminophen 325 MG TAB PO PRN ×2 (06:08→21:31)
[2018-09-08] MEDS: Saccharomyces boulardii 250 MG CAP PO SCH ×2 (09:55→21:31)
[2018-09-08] MEDS: Enoxaparin Sodium 40 MG/0.4 ML SYRINGE SC SCH (09:56)
[2018-09-08] MEDS: Famotidine 20 MG TAB PO SCH ×2 (09:56→21:31)
[2018-09-08] MEDS: Clopidogrel Bisulfate 75 MG TAB PO SCH (09:56)
--- NOTE | 2018-09-08 15:13 | PRG ---
DATE OF SERVICE: 09/08/2018 SUBJECTIVE: The patient states he feels okay, has no specific complaints today. PHYSICAL EXAMINATION: VITAL SIGNS: Temperature is 98.3, pulse 60, respirations 20, O2 sat 96% on room air, BP 143/69. GENERAL APPEARANCE: Age appropriate male in no distress. HEART: Has regular rate and rhythm without murmurs, gallops or rubs. LUNGS: Clear bilaterally. ABDOMEN: Soft, nontender, nondistended, positive bowel sounds, no masses, no organomegaly. 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 LABORATORY DATA: Blood sugars 96, C. diff toxin remained negative. IMPRESSION AND PLAN: 1. Acute cerebrovascular accident in the right MCA distribution. The patient had some mild left upp er extremity weakness, but that appears to be much improved. Remains on Plavix. He has not been ju nargis on aspirin because of history of an allergy and as per the recommendations of Neurology. 2. Right carotid stenosis that encompasses much of the internal carotid artery. CV Surgery did not feel they can get access to the level at which this stenosis rises up into the head. Discussed with Neurosurgery and Dr. Cano does not feel there is a good "landing site" for stenting, therefore it wa s recommended medical intervention only as well. Patient was actually much relieved to hear that. 3. Pituitary macroadenoma followed by Neurosurgery. The patient can have outpatient workup when he is able to use [facility]'s upright MRI. 4. Diarrhea workup negative, seems to be improving. 5. Low-grade temperature without a specific source of infection noted. He is empirically on the Lev aquin and we have left him on that for now. I will likely not need that long-term as there is still no evidence of specific infection developing. 6. Hypertension, chronic, stable. 7. History of gastroesophageal reflux, stable. 8. History of osteoarthritis of his ankles affecting mobility. 9. Obesity. DISPOSITION: The patient is awaiting acceptance at [facility] facility.
[2018-09-08] MEDS: Atorvastatin Calcium 40 MG TAB PO SCH (21:31)
[2018-09-09 00:45] VITALS: BP 98/52; TEMP 98.4
== END 2018-09-09 01:01 | DRG 65 ==
LOC: ERS 22:07 → CCU 09-02 00:21 → 2SE 09-02 05:37 → 2NO 09-03 18:23 → 2SE 09-06 18:24
PROVIDERS: ADMIT Internal Medicine; ATTEND Internal Medicine
DX: I63.511 Cerebral infarction due to unspecified occlusion or stenosis of right middle cerebral artery (principal); G81.94 Hemiplegia, unspecified affecting left nondominant side; I10 Essential (primary) hypertension; Z79.82 Long term (current) use of aspirin; I65.21 Occlusion and stenosis of right carotid artery; Z79.02 Long term (current) use of antithrombotics/antiplatelets; E66.9 Obesity, unspecified; Z68.38 Body mass index [BMI] 38.0-38.9, adult; D49.7 Neoplasm of unspecified behavior of endocrine glands and other parts of nervous system; K21.9 Gastro-esophageal reflux disease without esophagitis; M19.072 Primary osteoarthritis, left ankle and foot; M19.071 Primary osteoarthritis, right ankle and foot; H53.462 Homonymous bilateral field defects, left side; G89.29 Other chronic pain; M54.9 Dorsalgia, unspecified; R29.703 NIHSS score 3
CPT/HCPCS: 0042T; 36415; 36416; 70496; 70498; 71045; 71046; 80048; 80053; 80061; 81003; 82533; 83001; 83002; 83003; 83880; 84146; 84305; 84439; 84443; 85025; 85652; 87086; 87324; 87449; 93306; G8978-GP-CM; G8979-GP-CK; G8987-GO-CL; G8988-GO-CJ; G9165-GN-CJ; G9166-GN-CJ; J1650; J1885; J2405